=== PATIENT | female | born 1975 | race Caucasian/White ===

== ENCOUNTER 2016-10-23 05:31 | Day surgery (SDC) | payer BC, OTHER ==
[2016-10-20 17:05] VITALS: BMI 35.2
[~2016-10-23] VITALS: Ht 154.9 cm; Wt 83.6 kg
[2016-10-23] VITALS (13 sets, daily range): BP systolic 109–149; BP diastolic 57–74; PULSE 61–84; RESP 14–25; Ht 154.9 cm; Wt 83.6 kg
[~2016-10-23 05:31] MED LIST: NO MEDS; SOD CHLORIDE 0.9% 1,000 ML IV SCH
[2016-10-23] MEDS ORDERED: CEFAZOLIN 2 GM/50 ML (PMX) 50 ML IVPB SCH (06:00)
[2016-10-23] MEDS ORDERED: BUPIVACAINE 0.25% (MPF) 30 ML INJ ONE (06:41)
[2016-10-23] MEDS ORDERED: POLYMYXIN/BACITRACIN 1L IRRIG ONE (07:23)
[2016-10-23] MEDS ORDERED: ROCURONIUM 50 MG INJ ONE (07:30)
[2016-10-23] MEDS ORDERED: EPHEDrine SULFATE 50 MG/5 ML SYG IV PRN (07:30)
[2016-10-23] MEDS ORDERED: MEPERIDINE 25 MG INJ IV PRN (07:30)
[2016-10-23] MEDS ORDERED: MIDAZOLAM 1 MG/ML 2 ML INJ IV PRN (07:30)
[2016-10-23] MEDS ORDERED: ONDANSETRON 4 MG INJ IV PRN (07:30)
[2016-10-23] MEDS ORDERED: SUCCINYLCHOLINE CHLORIDE 100 MG/5 ML SYG IV ONE (07:30)
[2016-10-23] MEDS ORDERED: GLYCOPYRROLATE 0.4 MG INJ ONE ×2 (07:30→08:06)
[2016-10-23] MEDS ORDERED: morphine (1 MG/ML) 10ML SYRINGE IV PRN ×2 (07:30)
[2016-10-23] MEDS ORDERED: MEPERIDINE 100 MG INJ ONE (07:30)
[2016-10-23] MEDS ORDERED: hydrALAzine 20 MG INJ IV PRN (07:30)
[2016-10-23] MEDS ORDERED: LIDOCAINE 2% (SDV) 5 ML INJ ONE (07:30)
[2016-10-23] MEDS ORDERED: METOCLOPRAMIDE 10 MG INJ IV PRN (07:30)
[2016-10-23] MEDS ORDERED: NEOSTIGMINE 3 MG/3 ML SYRINGE ONE ×2 (07:30→08:06)
[2016-10-23] MEDS ORDERED: HYDROmorphONE (0.2 MG/ML) 10ML SYG IV PRN ×2 (07:30)
[2016-10-23] MEDS ORDERED: PROPOFOL 20 ML ONE (07:30)
[2016-10-23] MEDS ORDERED: FENTAnyl 50 MCG/ML VIAL IV PRN ×2 (07:30)
[2016-10-23] MEDS ORDERED: DIPHENHYDRAMINE 50 MG INJ IV PRN (07:30)
[2016-10-23] MEDS ORDERED: LABETALOL HCL 20MG INJ IV PRN (07:30)
[2016-10-23] MEDS ORDERED: CEFAZOLIN 1 GM INJ ONE (08:05)
[2016-10-23] MEDS ORDERED: METOCLOPRAMIDE 10 MG INJ ONE (08:06)
[2016-10-23] MEDS ORDERED: ONDANSETRON 4 MG INJ ONE (08:06)
[2016-10-23] MEDS ORDERED: POLYMYXIN/BACITRACIN 1L IRRIG IRR ONE (08:18)
[2016-10-23] MEDS ORDERED: HYDROCODONE/APAP (5/325) TAB PO ONE (09:00)
--- NOTE | 2016-10-23 10:47 | OPR ---
DATE OF OPERATION: 10/23/2016 INDICATION: This is a 41-year-old female with an incarcerated recurrent incisional hernia. She req uests surgical repair. Risks, alternatives, benefits, and personnel were discussed with the patient . The patient expresses understanding and consents to the operation. PREOPERATIVE DIAGNOSIS: Recurrent incarcerated incisional hernia. POSTOPERATIVE DIAGNOSIS: Recurrent incarcerated incisional hernia. OPERATION PERFORMED: Laparoscopic incarcerated recurrent incisional hernia repair with 15 x [address] mesh. SURGEON: Suni Hernandez MD SPECIMEN: None. COMPLICATIONS: None. ANESTHESIA: General. DESCRIPTION OF PROCEDURE: The patient was taken to the OR, prepped and draped in the usual sterile fashion. Surgical timeout was performed. IV antibiotics were given. Left upper quadrant 5 mm odonnell sverse incision is made with a 15 blade. Using a 5 mm optical trocar, optical entry was performed. Pneumoperitoneum was established. Left flank 12 mm optical trocar and left lower quadrant 5 mm opt ical trocars were placed under direct visualization. Upon initial inspection, there were some adhes ions to the incarcerated hernia. These were laparoscopically lysed and the incarcerated hernias red uced laparoscopically. There was a large hernia defect which was identified. Multiple interrupted #1 Prolenes were placed with Endoclose and laparoscopic techniques to close the defect. An underlay mesh was secured in place with SecureStrap with approximately 4 to 5 cm of coverage in all directio ns. There was good hemostasis. Ports were removed under direct visualization. Skin was closed usi ng skin john. Local anesthesia was injected. Dry dressings were applied. Dictated By: SUNI HERNANDEZ MD SB/ROSEMARY Conf#: [id number] DID#: [id number]
== END 2016-10-23 11:10 | disposition home or self-care (01) ==
LOC: SDS 05:31
PROVIDERS: ATTEND Surgery
DX: K43.0 Incisional hernia with obstruction, without gangrene (principal); E66.9 Obesity, unspecified; Z68.34 Body mass index [BMI] 34.0-34.9, adult
CPT/HCPCS: 49655; 84703; C1781; J0330; J0690; J1170; J2175; J2405; J2710; J2765; J3010; Z7512; Z7610